=== PATIENT | female | born 1945 | race Caucasian/White ===

== ENCOUNTER → 2016-10-27 | Outpatient (CLI) | payer MEDICARE ==
[~2016-10-27] MED LIST: ACTOS PO; ALEVE220 M1 PO; AMOXICILLIN500 M1 PO; ASPIRIN81 M2 PO; ATENOLOL25 MG PO; ATIVAN0.5 MG PO; BRILINTA90 MG PO; COLACE PO; FERROUS GLUCON324 MG PO; IBUPROFEN400 MG PO; IMDUR PO; KCL PO; LASIX20 MG PO; LEVAQUIN PO; LISINOPRIL; LISINOPRIL-HCTZ1 T14 PO; LISINOPRIL-HCTZ1 T15 PO; LISINOPRIL-HCTZ1 T20 PO; LISINOPRIL10 MG PO; LORTAB 5/500 TA1 TA1 PO; LOTREL 5/20 MG1 CAP PO; METFORMIN HCL500 M3 PO; METFORMIN PO; NITROGLYCERIN0.3 M1 PO; PERCOCET5/325 PO; PHENERGAN12.5 MG PO; PHENERGAN25 M1; PRINIVIL20 M1 PO; REMERON15 MG PO; SEROQUEL25 MG PO; SYNTHROID0.05 MG PO; TRAMADOL HCL50 M2 PO; ZESTORETIC1 TAB; ZOFRAN PO
--- NOTE | ~2016-10-27 | XA77 ---
[facility] A Service of [facility] & [facility] RADIOLOGY TEXT RESULTS PATIENT: PAPA PHILLIPS [facility] : 44 UNIT #: [id number] AGE: [address]: Mellisa Smith MD SEX: F ORDER DR: [id number] [facility] [address] [place], [place] [address] [id number] O MR#: [id number] Acc #: [id number] NAME: PAPA PHILLIPS. : 1945 SEX: F STUDY DATE/TIME: 10/27/2016 13:19 [facility]IT[facility] ROOM: STUDY DESCRIPTION: XA CVC Port Devive Check Attending Physician: Mellisa Smith M.D., Ph.D. Ordering Physician: Mellisa Smith M.D., Ph.D. Primary Care Physician: Matt Lopez M.D. MEDICAL IMAGING REPORT This report is preliminary unless electronic signature is present EXAM Port site check 10/27/2016 HISTORY Recently seen for eschar over the port, normally functioning port. FINDINGS The patient was examined. Fluoroscopic evaluation was normal. There is a small eschar over the upper margin of the port but there is no exposed port, skin breakdown, drainage or erythema. Patient was instructed to return to the department if erythema or increasing pain or drainage occurs or if at any point the port device becomes visibly exposed. Dictated by... Ramses Read M.D. THIS IS AN ELECTRONICALLY VERIFIED REPORT Ramses Read M.D. at 11/01/2016 5:04 PM ELLIE/jer TD: 10/30/2016 13:28 JOB #: [id number] MEDICAL IMAGING REPORT COPY
== END | disposition home or self-care (01) ==
LOC: CIVR 12:18
DX: Z45.2 Encounter for adjustment and management of vascular access device (principal); C34.80 Malignant neoplasm of overlapping sites of unspecified bronchus and lung; C78.7 Secondary malignant neoplasm of liver and intrahepatic bile duct; C34.81 Malignant neoplasm of overlapping sites of right bronchus and lung; D50.9 Iron deficiency anemia, unspecified; E11.9 Type 2 diabetes mellitus without complications

== ENCOUNTER 2016-11-11 14:41 | Inpatient (IN) | payer MEDICARE ==
--- NOTE | ~2016-11-11 | CR72 ---
[facility] A Service of [facility] RADIOLOGY TEXT RESULTS PATIENT: PAPA PHILLIPS LOCATION: [facility] 574- : 44 UNIT #: [id number] AGE: [address]: Brigitte Zaragoza MD SEX: F ORDER DR: [id number] [facility]. [place], [place] [address] [id number] I MR#: [id number] Acc #: [id number] NAME: PAPA PHILLIPS. : 1945 SEX: F STUDY DATE/TIME: 11/11/2016 21:04 UNIT: [facility] ROOM: [facility] STUDY DESCRIPTION: CR Chest Single View Portable Attending Physician: Brigitte Zaragoza M.D. Ordering Physician: Brigitte Zaragoza M.D. Primary Care Physician: Matt Lopez M.D. MEDICAL IMAGING REPORT This report is preliminary unless electronic signature is present EXAM AP portable chest, 11/11/2016 HISTORY 71-year-old female hospital inpatient with history of metastatic lung cancer. She complains of chest pain and weakness today. TECHNIQUE AP portable upright chest x-ray. COMPARISON CT chest 10/05/2016 FINDINGS The patient has previously demonstrated large cavitary right central lung mass anterior the hilum is again demonstrated, best seen on the recent prior CT study. New focal nodular opacities in the right upper lobe medially near the mediastinum and in the right lower lung laterally were not present on the CT study of 10/05/2016. Metastatic pulmonary malignancy versus acute pulmonary infiltrate should be considered. There is potential additional subtle nodularity in the left upper lung. Remaining portions of both lungs are clear. No visible pleural effusion. Cardiomediastinal silhouette is normal. Central venous port catheter in good position. IMPRESSION 1. 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 2. New, somewhat ill-defined nodular opacities in the right upper lung, right lower lung and left lung apex. Followup chest CT examination is recommended if clinically indicated. [facility] A Service of [facility] RADIOLOGY TEXT RESULTS PATIENT: PAPA PHILLIPS LOCATION: [facility] 574-01 : 44 UNIT #: [id number] AGE: [address]: Brigitte Zaragoza MD SEX: F ORDER DR: STAT * RESULT Dictated by... Harpreet Wong M.D. THIS IS AN ELECTRONICALLY VERIFIED REPORT Harpreet Wong M.D. at 11/12/2016 6:01 AM ESPINOZA/chelita TD: 11/11/2016 22:20 JOB #: [id number] MEDICAL IMAGING REPORT Page 1 of 1 COPY
--- NOTE | ~2016-11-11 | CO ---
Unit #: [id number] #: [id number] Patient: PAPA PHILLIPS [id number] [facility] [address] [place], [place] [address] [id number] I MR#: [id number] NAME: PAPA PHILLIPS ROOM: 574 Age: 71 Sex: F Admission Date: 11/11/2016 : 1945 Attending Physician: Brigitte Zaragoza M.D. Primary Care Physician: aMtt Lopez M.D. Consultation Date: 11/12/2016 CONSULTATION REPORT The patient was admitted to Dr. Brigitte Zaragoza. REASON FOR CONSULTATION Sepsis. HISTORY OF PRESENT ILLNESS This is a 71-year-old female that is unable to provide any history due to being unresponsive. She has multiple family members at the bedside who provide her history. The patient has a history of lung cancer with mets to the liver and the spine. The patient reportedly was not feeling well over the last several weeks at home with increasing malaise, weakness, and decreasing appetite. Per the family, she never had any temperature. The patient did have some increasing cough over the last several days. The patient was taken to Dr. Smith's, her oncologist, office on Tuesday where she was given IV fluids and sent home as she appeared to be doing better. The patient then returned for her chemotherapy treatment and from her chemotherapy treatment, she was sent to [facility] for further evaluation. The patient did not have any fevers overnight; however, this morning she did have an episode of a seizure. A rapid response was called and patient has just returned from a CT scan of her head. ID is evaluating for infectious etiology. PAST MEDICAL HISTORY 1. Diabetes. 2. Hypertension. 3. Cervical cancer. 4. Status post hysterectomy at age 26. 5. Lung cancer with mets to the liver and spine. PAST SURGICAL HISTORY 1. Back surgery. 2. Appendectomy. 3. Cholecystectomy. MEDICATIONS The patient is currently on vancomycin and cefepime. The patient has also been started on antiseizure meds. For other medications, please refer to patient's MAR. SOCIAL HISTORY Unable to obtain as patient is currently unresponsive. The family reports she has had past tobacco and was intermittently using an E-cigarette; however, she has not for several weeks. No alcohol use. No other drug use. Unit #: [id number] #: [id number] Patient: PAPA PHILLIPS ALLERGIES There is a reported allergy of Keflex; however, she has been on cefepime and appears to be (1) well. REVIEW OF SYSTEMS Unable to be done due to patient's current neurological status. PHYSICAL EXAMINATION VITAL SIGNS: Temperature is 97.6, pulse is 91, blood pressure 193/93, respiratory rate 14. GENERAL: This is an unresponsive female who does not follow any commands. HEENT: Her pupils are sluggish. NECK: Her neck is supple with no rigidity noted. CARDIOVASCULAR: S1, S2. Regular rate and rhythm. PULMONARY: Clear to auscultation with scarce rhonchi noted. No wheezes. ABDOMEN: Hypoactive bowel sounds. Soft and nontender. EXTREMITIES: No clubbing, cyanosis, or edema. There does not appear to be any healing wounds. NEUROLOGIC: The patient is frail and pale appearing. DIAGNOSTIC STUDIES LABORATORY: BUN 13, creatinine 0.5, sodium 135, potassium 3.8, chloride 101, CO2 of 22. Bilirubin 0.6, AST 25, ALT 13. White blood cell count of 24,000 which is increased from 13,000, hemoglobin 10.3, hematocrit 33.4, platelets 732,000. Blood cultures are currently pending. IMAGING: A chest film reveals malignant cavitary mass on the right central lung. New ill-defined nodule opacities in the right upper lung, right lower lung, and left apex. CT scan of the head has been done; however, results are not available to me at this time. IMPRESSION This is a 71-year-old female with lung cancer with mets to the liver and the T6 vertebra. The patient now has increasing lethargy, malaise, and occasional cough at home with anorexia. The patient has had no documented fever. At this time, patient was admitted due to feeling poorly and has suffered a seizure this morning and she has been started on antiseizure medications and is status post a CT scan of her head; however, results are not known. Possibilities at this time including suspected metastatic lesion to the brain, possible stroke versus central nervous system infection/meningitis. The patient also has suspected pneumonia and aspiration pneumonia is not completely excluded. Will also need to rule out bacteremia and urinary tract infection. At this time, a CT scan of the head is negative and per the family wishes, continue aggressive medical care. Will recommend to have a lumbar puncture done to rule out a meningitis or central nervous system infection. Neurology has also been asked to see this patient today due to her seizures as well and will follow along with their recommendations. Will continue vancomycin and cefepime. Will also add Diflucan, ampicillin, Flagyl, and acyclovir. Will check a serum procalcitonin level, PT/INR, CBC, and UA and culture. Will have the nursing staff call with any positive blood cultures. The patient may need to be transferred to the ICU for closer monitoring but will defer this to the admitting team. This case was discussed in detail with both the family at length, who are aware of the patient's current situation, as well as Dr. Law Hoffman, who is covering for infectious Unit #: [id number] #: [id number] Patient: PAPA PHILLIPS disease with me today. Thank you for allowing us to participate in the care of this patient. Further recommendations to follow pending patient's clinical course. Dictated by... Juanita Andrew A.P.R.NSusy for Rachel Lozano/teofilo TD: 11/12/2016 09:04 JOB #: [id number] CONSULTATION REPORT Page 1 of 1 X X CONSULTATION REPORT
--- NOTE | ~2016-11-11 | HP ---
Unit #: [id number] #: [id number] Patient: PAPA PHILLIPS [id number] [address] [address] [id number] I MR#: [id number] NAME: PAPA PHILLIPS. ROOM: 574 Age: 71 Sex: F Admission Date: 11/11/2016 : 1945 Attending Physician: Brigitte Zaragoza M.D. Primary Care Physician: Matt Lopez M.D. HISTORY AND PHYSICAL CHIEF COMPLAINT Shortness of breath. HISTORY OF PRESENT ILLNESS This 71-year-old female who has a history of extensive metastatic cancer, presented to the oncology office with weakness, lethargy, diarrhea and shortness of breath. I am seeing the patient at the bedside. She appears to be very weak. PAST MEDICAL HISTORY 1. Diabetes. 2. Hypertension. 3. Cervical cancer. 4. History of lung cancer metastatic to the liver and spine. PAST SURGICAL HISTORY 1. Back surgery. 2. Appendectomy. 3. Cholecystectomy. HOME MEDICATIONS As per MAR has been reviewed. SOCIAL HISTORY Ex-smoker. No alcohol, no drug abuse. FAMILY HISTORY None. REVIEW OF SYSTEMS Unobtainable because of patient's weakness. PHYSICAL EXAMINATION VITAL SIGNS: Temperature 98, pulse 67, respirations 12, blood pressure 110/70. NEUROLOGIC: Awake, alert, oriented. No neurologic deficits. HEENT: PERRLA. EOMI. NECK: Supple, no JVD. LUNGS: Bilateral air entry, bilateral mild rhonchi. ABDOMEN: Nontender, soft. Positive bowel sounds. EXTREMITIES: No edema. SKIN: No rashes, no ulcers. LYMPHATIC: No lymphadenopathy. Unit #: [id number] #: [id number] Patient: PAPA PHILLIPS DIAGNOSTIC STUDIES LABORATORY: Pending. IMAGING: Pending. ASSESSMENT AND PLAN 1. Immunocompromised patient with metastatic cancer. 2. Diarrhea, rule out sepsis. 3. Hypokalemia. PLAN 1. Admit the patient. 2. Replace electrolytes. 3. IV fluid, IV antibiotics. 4. Follow up cultures. 5. GI and DVT prophylaxis. 6. . 7. Oncology consultation. 8. Discussed with the family, prognosis is very poor. Dictated by SaRachel Schumacher TD: 11/12/2016 21:50 JOB #: [id number] HISTORY AND PHYSICAL Page 1 of 1 X Brigitte Zaragoza MD HISTORY AND PHYSICAL
--- NOTE | ~2016-11-11 | CT71 ---
[facility] A Service of [facility] RADIOLOGY TEXT RESULTS PATIENT: PAPA PHILLIPS LOCATION: [facility] 5711-20 : 44 UNIT #: [id number] AGE: [address]: Brigitte Zaragoza MD SEX: F ORDER DR: [id number] [facility] [place] [facility]. [place], [place] [address] [id number] I MR#: [id number] Acc #: [id number] NAME: PAPA PHILLIPS. : 1945 SEX: F STUDY DATE/TIME: 11/12/2016 7:52 UNIT: [facility] ROOM: [facility] STUDY DESCRIPTION: CT Head Wo Contrast Attending Physician: Brigitte Zaragoza M.D. Ordering Physician: Brigitte Zaragoza M.D. Primary Care Physician: Matt Lopez M.D. MEDICAL IMAGING REPORT This report is preliminary unless electronic signature is present EXAM CT brain without contrast media HISTORY Seizure today TECHNIQUE Transaxial imaging of the brain was performed without contrast. This CT exam was performed with one or more of the following radiation dose reduction techniques: automatic exposure control, adjustment of mA and/or kV according to patient size, and iterative reconstruction. FINDINGS There is generalized enlargement of the ventricles and CSF-containing spaces. There is decreased attenuation in the periventricular regions of both hemispheres. No mass lesions, mass effect, evidence of acute hemorrhage or edema. No intra or extraaxial fluid collections are seen. Dense atherosclerotic calcification of the vertebral arteries and carotid siphons. Small midline lipoma is identified along the falx. Paranasal sinuses and mastoid air cells are clear. CONCLUSION 1. Atrophy with mild chronic periventricular deep white matter ischemic changes. 2. 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 3. No acute intracranial findings. Dictated by... Cody Witt M.D. THIS IS AN ELECTRONICALLY VERIFIED REPORT [facility] A Service [facility] RADIOLOGY TEXT RESULTS PATIENT: PAPA PHILLIPS LOCATION: [facility] : 44 UNIT #: [id number] AGE: [address]: Brigitte Zaragoza MD SEX: F ORDER DR: Cody Witt M.D. at 11/15/2016 2:44 PM MIRANDA/aj TD: 11/12/2016 09:28 JOB #: [id number] MEDICAL IMAGING REPORT Page 1 of 1 COPY
[~2016-11-11 14:41] MED LIST changes: -ASPIRIN81 M2 PO; -ATENOLOL25 MG PO; -ATIVAN0.5 MG PO; -BRILINTA90 MG PO; -IMDUR PO; -LASIX20 MG PO; -LISINOPRIL10 MG PO; -NITROGLYCERIN0.3 M1 PO; -REMERON15 MG PO; -SEROQUEL25 MG PO; -SYNTHROID0.05 MG PO
[2016-11-11 17:45] LABS: HEMATOCRIT 31.4 % (35.0-45.0); HEMOGLOBIN 9.7 gm/dL (12.0-16.0); MEAN CORPUSCULAR HEMOGLOBIN 24.8 PG (28-34); MEAN CORPUSCULAR HGB CONC 31.1 g/dL (30-36); RED BLOOD COUNT 3.92 X10e (3.90-5.30); WHITE BLOOD COUNT 13.6 X10e3 (4.0-10.5)
[2016-11-11 18:16] LABS: CALCIUM SERUM 13.2 mg/dL (8.4-10.2); CREATININE SERUM 0.4 mg/dL (0.6-1.4); GLOM FILT RATE Estimated 104.1 mL/min (>60)
[2016-11-11 18:19] LABS: POTASSIUM 2.2 mmol/L (3.5-5.1)
[2016-11-12 07:51] LABS: ARTERIAL BLD GAS O2 SATURATION 90.4 % (90.0-100.0); ARTERIAL BLOOD GAS CARBOXY HB 0.8 %sat (0.0-9.0); ARTERIAL BLOOD GAS HCO3 22.6 mmol/L; ARTERIAL BLOOD GAS MET HB 1.2 %sat (0.0-2.0); ARTERIAL BLOOD GAS PCO2 41.1 mmHg (35.0-45.0); ARTERIAL BLOOD GAS pH 7.348 (7.350-7.450)
[2016-11-12 07:52] LABS: ARTERIAL BLOOD GAS ART SITE RIGHT BRACHIAL; ARTERIAL BLOOD GAS DELIVERY NASAL CANNULA; ARTERIAL BLOOD GAS PO2 69.4 mmHg (80.0-100); ARTERIAL DRAW? YES
[2016-11-12 07:58] LABS: HEMATOCRIT 33.4 % (35.0-45.0); HEMOGLOBIN 10.3 gm/dL (12.0-16.0); MEAN CORPUSCULAR HEMOGLOBIN 24.9 PG (28-34); MEAN CORPUSCULAR HGB CONC 30.8 g/dL (30-36); MEAN PLATELET VOLUME 6.6 FL (6.5-11.5); RED BLOOD COUNT 4.12 X10e (3.90-5.30); RED CELL DISTRIBUTION WIDTH 19.7 % (11.0-15.5)
[2016-11-12 07:59] LABS: WHITE BLOOD COUNT 24.8 X10e3 (4.0-10.5)
[2016-11-12 08:46] LABS: ALBUMIN SERUM 2.5 g/dL (3.5-5.0); BILIRUBIN,TOTAL 0.6 mg/dL (0.2-2.0); CALCIUM SERUM 13.8 mg/dL (8.4-10.2); CREATININE SERUM 0.5 mg/dL (0.6-1.4); GLOM FILT RATE Estimated 96.7 mL/min (>60); PROTEIN TOTAL SERUM 6.5 g/dL (6.0-8.3)
[2016-11-12 08:49] LABS: POTASSIUM 3.8 mmol/L (3.5-5.1)
[2016-11-12 09:53] LABS: ALBUMIN SERUM 2.3 g/dL (3.5-5.0); ALKALINE PHOSPHATASE 98 U/L (32-92); ALT (SGPT) 14 U/L (10-40); AST (SGOT) 25 U/L (10-42); BILIRUBIN,TOTAL 0.6 mg/dL (0.2-2.0); BLOOD UREA NITROGEN 13 mg/dL (9-23); BUN/CREATININE RATIO 43.33; CALCIUM SERUM 13.7 mg/dL (8.4-10.2); CARBON DIOXIDE 21 mmol/L (22-31); CHLORIDE 102 mmol/L (100-111); CREATININE SERUM <0.3 mg/dL (0.6-1.4); GLUCOSE FASTING 131 mg/dL (70-110); MAGNESIUM 1.4 mg/dL (1.6-3.0); PROTEIN TOTAL SERUM 5.9 g/dL (6.0-8.3); SODIUM 135 mmol/L (135-145)
[2016-11-12 09:54] LABS: GLOM FILT RATE Estimated >60.0 mL/min (>60)
[2016-11-12] MEDS ORDERED: ASPIRIN81 M2 PO (21:10)
[2016-11-12] MEDS ORDERED: BRILINTA90 MG PO (21:10)
[2016-11-12] MEDS ORDERED: ATENOLOL25 MG PO (21:11)
[2016-11-12] MEDS ORDERED: ATIVAN0.5 MG PO (21:12)
[2016-11-12] MEDS ORDERED: LISINOPRIL10 MG PO (21:12)
[2016-11-12] MEDS ORDERED: SEROQUEL25 MG PO (21:13)
[2016-11-12] MEDS ORDERED: REMERON15 MG PO (21:13)
[2016-11-12] MEDS ORDERED: LASIX20 MG PO (21:14)
[2016-11-12] MEDS ORDERED: IMDUR PO (21:14)
[2016-11-12] MEDS ORDERED: NITROGLYCERIN0.3 M1 PO (21:15)
[2016-11-12] MEDS ORDERED: SYNTHROID0.05 MG PO (21:16)
== END 2016-11-15 01:59 | disposition expired | DRG 871 ==
LOC: C5C 14:41
PROVIDERS: Internal Medicine
DX: A41.9 Sepsis, unspecified organism (principal); J18.9 Pneumonia, unspecified organism; C34.90 Malignant neoplasm of unspecified part of unspecified bronchus or lung; C78.7 Secondary malignant neoplasm of liver and intrahepatic bile duct; C79.51 Secondary malignant neoplasm of bone; R56.9 Unspecified convulsions; R19.7 Diarrhea, unspecified; E87.6 Hypokalemia; Z90.49 Acquired absence of other specified parts of digestive tract; Z87.891 Personal history of nicotine dependence; Z85.41 Personal history of malignant neoplasm of cervix uteri; Z66 Do not resuscitate; Z51.5 Encounter for palliative care; E11.9 Type 2 diabetes mellitus without complications; Z79.84 Long term (current) use of oral hypoglycemic drugs
CPT/HCPCS: 36600; 70450; 71010; 80048; 80053; 82140; 82803; 82947; 83735; 85027; 87040; 94760; C9254; J0133; J0290; J0692; J1450; J1953; J2060; J2270; J3370